=== PATIENT | male | born 1940 | race Caucasian/White ===

== ENCOUNTER → 2019-12-14 10:04 | Outpatient (CLI) | payer MEDICARE, BC, SELFPAY ==
--- NOTE | 2019-12-14 10:04 | MR_ITS ---
PROCEDURE: MR SHOULDER LT WO CON CLINICAL INDICATION: shoulder pain Injury with pain and limited range of motion COMPARISON: No exams were available for comparison TECHNIQUE: Routine multiplanar multi echo sequences are performed without gadolinium enhancement. FINDINGS: Hypertrophic changes are present with acromioclavicular arthropathy and subacromial stenosis. There is thickening of the supraspinatus infraspinatus and subscapularis tendons with some increase in T2 signal consistent with tendinopathy/tendinosis. There is some impingement upon the supraspinatus tendon by the acromioclavicular hypertrophic changes. There is some increased T2 signal involving the distal aspect of the supraspinatus tendon as well as the infraspinatus tendon along the undersurface and the deep surface of the subscapularis tendon suggesting partial tear. Complete tears with tendon retraction is not identified. The teres minor tendon appears intact. The bicipital tendon is in place. There are mild osteoarthritic changes of the glenohumeral joint. There is increased T2 signal involving the glenoid labrum both anterior and posterior aspect. Some of this increased signal may be due to chondroid degeneration. Cannot exclude labral tear is based on this exam. MR arthrography may provide further evaluation if clinically desired. There are some hypertrophic changes of the humeral head with subarticular cystic change. IMPRESSION: Acromioclavicular arthropathy with subacromial stenosis with some impingement upon the supraspinatus tendon with tendinopathy/tendinosis of the supraspinatus, infraspinatus, and subscapularis tendons with suspected partial tears. Abnormal signal intensity involves the glenoid labrum possibly due to chondroid degeneration versus labral tear is. MR arthrography may provide further evaluation if clinically desired Dictated by: oRdolfo Zamorano MD 12/16/2019 08:57 Electronically signed by Rodolfo Zamorano MD in [place] 12/16/2019 08:57
== END ==
PROVIDERS: PCP Family Medicine; Visit Provider Family Medicine
DX: M25.512 Pain in left shoulder (principal)
CPT/HCPCS: 73221

== ENCOUNTER → 2020-01-14 12:15 | Outpatient (CLI) | payer MEDICARE, BC, SELFPAY ==
--- NOTE | 2020-01-14 12:20 | XR_ITS ---
PROCEDURE: XR SHOULDER LT MIN 2V CLINICAL INDICATION: left shoulder pain COMPARISON: No exams were available for comparison FINDINGS: Osteoarthritic changes are present at the acromioclavicular joint with bony hypertrophy. There is osteoarthritis also at the glenohumeral joint with spurring along the inferior aspect of the glenoid. No fracture or dislocation. 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
== END ==
PROVIDERS: PCP Family Medicine; Visit Provider Orthopaedic Surgery
DX: M25.512 Pain in left shoulder (principal)
CPT/HCPCS: 73030